=== PATIENT | female | born 1990 | race African-American/Black ===

== ENCOUNTER 2017-03-30 18:24 | Emergency (ER) | payer SELFPAY ==
[~2017-03-30] VITALS: Ht 154.9 cm; Wt 56.0 kg
[2017-03-31 04:11] VITALS: BP 89/53
== END 2017-03-31 04:34 | disposition home or self-care (01) ==
LOC: ER 20:00
DX: S09.90XA Unspecified injury of head, initial encounter (principal); S16.1XXA Strain of muscle, fascia and tendon at neck level, initial encounter; R41.3 Other amnesia; F17.290 Nicotine dependence, other tobacco product, uncomplicated; F12.10 Cannabis abuse, uncomplicated; V49.9XXA Car occupant (driver) (passenger) injured in unspecified traffic accident, initial encounter; Y93.89 Activity, other specified; Y92.89 Other specified places as the place of occurrence of the external cause; Y99.8 Other external cause status
CPT/HCPCS: 70450; 72125; 81025; 99284